=== PATIENT | female | born 1955 | race Caucasian/White ===

== ENCOUNTER 2022-01-17 11:46 | Outpatient (CLI) | payer MEDICARE, BC, SELFPAY ==
[2022-01-17 14:20] LABS: Vitamin D 25 Hydroxy* 29 ng/mL (30-80)
[2022-01-17 14:22] LABS: Chloride* 102 mmol/L (96-114); Potassium* 4.6 mmol/L (3.6-5.1); Sodium* 141 mmol/L (135-149)
[2022-01-17 14:25] LABS: Blood Urea Nitrogen* 11 mg/dL (7-30); Carbon Dioxide* 30 mmol/L (20-32); Cholesterol* 223 mg/dL (90-199); Creatinine* 0.6 mg/dL (0.5-1.5); Estimated Glomerular Filt Rate 98 ml/min; Glucose* 82 mg/dL (60-115); Triglycerides* 129 mg/dL (40-149)
[2022-01-17 14:26] LABS: Calcium* 9.3 mg/dL (8.4-10.6); HDL Cholesterol* 69 mg/dL (>=50); LDL Cholesterol Calculated 128 mg/dL (<100)
[2022-01-17 14:34] LABS: Thyroid Stimulating Hormone* 0.414 uIU/mL (0.270-4.20)
== END 2022-01-17 11:47 | disposition home or self-care (01) ==
PROVIDERS: PCP Family Medicine; Visit Provider Family Medicine
DX: I10 Essential (primary) hypertension (principal); R53.83 Other fatigue; E55.9 Vitamin D deficiency, unspecified; Z79.899 Other long term (current) drug therapy
CPT/HCPCS: 80048; 80061; 82306; 84443

== ENCOUNTER 2022-03-17 21:01 | Emergency (ER) | payer MEDICARE, BC, SELFPAY ==
[2022-03-17 21:12] VITALS: BP 124/78; PULSE 105; RESP 18; TEMP 36.7; O2SAT 99; BMI 22.0
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
--- NOTE | 2022-03-17 21:35 | CRLHL7_ITS ---
For Patients: As a result of the Century Cures Act, medical imaging exams and procedure reports are released immediately into your electronic medical record. You may view this report before your referring provider. If you have questions, please contact your health care provider. INDICATION: Delirium. TECHNIQUE: CT head without contrast. COMPARISON: None. FINDINGS: CSF spaces: Within normal limits for age. Brain parenchyma and extra-axial spaces: Mild bilateral periventricular white matter hypoattenuation, consistent with chronic small vessel ischemic disease. The boyce-white differentiation is normal. No sign of mass, hemorrhage, or midline shift. No extra-axial fluid collection. Skull base and calvarium: The visualized paranasal sinuses and mastoid air cells demonstrate no acute or significant findings. The visualized orbits are grossly unremarkable. No skull fractures. IMPRESSION: No evidence of an acute intracranial abnormality. Changes of mild chronic small vessel ischemic disease. Please note that all CT scans at this facility use dose modulation, iterative reconstruction, and/or weight-based dosing when appropriate to reduce radiation dose to as low as reasonably achievable. Dictated by Dipesh Zazueta MD @ 03/18/2022 1:33:12 AM (Electronically Signed)
[2022-03-17 22:16] LABS: Basophils Absolute Auto 0.05 K/uL (0.00-0.30); Basophils Percent Auto 0.5 % (0.0-3.0); Eosinophils Absolute Auto 0.03 K/uL (0.00-0.50); Eosinophils Percent Auto 0.3 % (0.0-7.0); Hematocrit 40.1 % (33.0-51.0); Hemoglobin* 14.1 gm/dL (12.0-16.0); Immature Granulocytes Abs Auto 0.02 K/uL (0.00-0.30); Immature Granulocytes Pct Auto 0.2 %; Lymphocytes Percent Auto 18.3 % (20-44); Mean Corpuscular HGB Conc 35 gm/dL (32-36); Mean Corpuscular Hemoglobin 32 pg (26-34); Mean Corpuscular Volume 90 fL (80-100); Monocytes Percent Auto 10.9 % (0.0-11.0); Neutrophils Absolute Auto 7.08 K/uL (1.7-7.0); Neutrophils Percent Auto 69.8 % (42.0-72.0); Platelet Count* 418 K/uL (140-440); RDW Coefficient of Variation % 11.8 % (11.5-15.5); Red Blood Count 4.45 m/uL (4.00-5.20); White Blood Count* 10.13 K/uL (4.50-11.00)
[2022-03-17 22:18] LABS: Slide Review Reflex No
[2022-03-17] MEDS: OLANZapine 5 MG/ML inj IM ×2 (22:25→22:41)
[2022-03-17 22:40] VITALS: O2SAT 86
[2022-03-17 22:42] LABS: Chloride* 100 mmol/L (96-114)
[2022-03-17 22:43] LABS: Albumin* 4.8 g/dL (3.3-5.0); Sodium* 134 mmol/L (135-149)
[2022-03-17 22:44] LABS: Potassium* 3.8 mmol/L (3.6-5.1)
[2022-03-17 22:46] LABS: Alanine Aminotransferase* 51 U/L (4-35); Alkaline Phosphatase* 138 U/L (40-150); Aspartate Amino Transferase* 131 U/L (12-35); Bilirubin Total* 0.7 mg/dL (0.1-1.5); Blood Urea Nitrogen* 7 mg/dL (7-30); Carbon Dioxide* 22 mmol/L (20-32); Creatinine* 0.6 mg/dL (0.5-1.5); Est. Creatinine Clearance* 44.54; Estimated Glomerular Filt Rate 98 ml/min; Glucose* 125 mg/dL (60-115); Total Protein* 7.4 g/dL (6.0-8.3)
[2022-03-17 22:47] LABS: Calcium* 10.2 mg/dL (8.4-10.6)
[2022-03-17 22:51] LABS: Acetaminophen* < 10.0 ug/mL (10.0-30.0); Ethanol* < 0.01 % (0.01-0.03); Salicylate* < 1.0 mg/dL (1.0-10)
[2022-03-17 22:55] VITALS: PULSE 99; RESP 20; O2SAT 96
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
--- NOTE | 2022-03-17 23:30 | ED.NURSE ---
Attempted to move patient to the bed from the restraint chair. Patient refusing stating, no, no, no. Will reattempt shortly.
[2022-03-18] VITALS (9 sets, daily range): BP systolic 110–127; BP diastolic 69–79; PULSE 89–99; RESP 14–18; TEMP 36.3–36.5; O2SAT 95–99
--- NOTE | 2022-03-18 | ED.NURSE ---
Patient refusing blood pressure check.
[2022-03-18] MEDS: diphenhydrAMINE 50 MG/ML inj IM (00:13)
[2022-03-18] MEDS: LORazepam 2 MG/ML inj IM (00:14)
--- NOTE | 2022-03-18 01:07 | ED.NURSE ---
Patient calm and cooperative. Agreeable to plan of care. Restraints removed.
--- NOTE | 2022-03-18 01:18 | ED.NURSE ---
Patient remains calm and cooperative. To CT and back to room. Patient provided with warm blankets.
--- NOTE | 2022-03-18 02:03 | ED.NURSE ---
Patient sleeping. Respirations easy, even and unlabored. Continuing frequent visual checks and camera monitoring.
--- NOTE | 2022-03-18 02:26 | ED.NURSE ---
Patient's daughter updated with plan of care. She will be going home to rest for the night. Patient continues to sleep. Continuos pulse ox in place.
[2022-03-18 07:57] LABS: Appearance Urine Clear (Clear); Bilirubin Urine Negative (Negative); Blood Urine Negative (Negative); Color Urine Yellow (Yellow); Glucose Urine Negative (Negative); Ketones Urine 3+ (Negative); Leukocyte Esterase Urine Trace (Negative); Nitrite Urine Negative (Negative); Protein Urine Negative (Negative); Urobilinogen Urine 0.2 (0.2-1.0)
[2022-03-18 08:02] LABS: Amphetamine Screen Urine Negative (Negative); Barbiturate Screen Urine Negative (Negative); Cannabinoid Screen Urine Negative (Negative); Cocaine Screen Urine Negative (Negative); Methadone Screen Urine Negative (Negative); Methamphetamines Screen Urine Negative (Negative); Opiate Screen Urine Negative (Negative); Oxycodone Screen Urine Negative (Negative); Phencyclidine Screen Urine Negative (Negative)
[2022-03-18 08:04] LABS: Benzodiazepines Screen Urine POSITIVE (Negative)
[2022-03-18 08:05] LABS: Tricyclic Antidepressant Urine POSITIVE (Negative)
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
[2022-03-18 08:17] LABS: Bacteria Urine Few; RBC Urine 0-2 (0-2); Squamous Epithelial Cell Urine Few (None-Few)
[2022-03-18 11:09] LABS: PCR FLU A Negative PCR FLU A (Negative); PCR FLU B Negative PCR FLU B (Negative); PCR RSV Negative PCR RSV (Negative)
[2022-03-18 11:33] LABS: SARS PCR* Negative SARS-CoV-2 (Negative)
[2022-03-18] MEDS: LORazepam 2 MG/ML inj 1 MG IM (13:40)
[2022-03-18] MEDS: OLANZapine 5 MG/ML inj IM (13:40)
--- NOTE | 2022-03-18 14:27 | ED.NURSE ---
leti mora not accepting her. was getting more agitated an wanted things her way. did let her have her purse with daughter present.
--- NOTE | 2022-03-18 14:32 | ED.NURSE ---
did take chicken broth with onions. has been up to br to void.
[2022-03-19] MEDS: IBUPROFEN 200 MG TABLET 600 MG PO (02:40)
[2022-03-19] MEDS: ALPRAZolam 0.25 MG TABLET 0.5 MG PO ×2 (04:00→14:25)
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
[2022-03-19 08:20] VITALS: BP 122/79; PULSE 86; RESP 20; TEMP 36.1; O2SAT 97
[2022-03-19] MEDS: CALCIUM CARBONATE 500 MG CHEW PO ×2 (10:50→22:33)
--- NOTE | 2022-03-19 10:50 | ED.NURSE ---
is tearful now and son Matt is stating that, I think I have my Mom back. Sadia is explaining that she did not take her meds for a week and had not been sleeping. is feeling that she is more on tract now. has been sleeping more the last few days she has been here. co having gas and calcium carbonate was given. has good appetite.
--- NOTE | 2022-03-19 14:20 | ED.NURSE ---
was asking for her xanax. 0.5 mg was given. does feel that she had the episode of her bizarre behavior due to not taking her meds, not sleeping and having severe stress. daughter is asking us to possibly doing the evaluation with dec tomorrow as she seems to be clearing. she is appropriate and watching the football game. eating and drinking well.
[2022-03-19] MEDS: QUETIAPINE 25 MG TABLET PO (16:55)
--- NOTE | 2022-03-19 18:34 | ED.NURSE ---
was offered a shower. has declined at present. I will wait for tomorrow to do that. did have food that was brought from the outside-[employer]. is cooperative and believes that she is better now and took the Seroquel to help stabilize her moods . will have Dec reassess - ~1999.
[2022-03-19] MEDS: NORTRIPTYLINE HCL 25 MG CAPSULE 100 MG PO (22:35)
--- NOTE | 2022-03-19 23:38 | ED.NURSE ---
Patient participating with DEC.
--- NOTE | 2022-03-20 04:35 | PC.NURSE ---
pt up to bathroom, asked for coffee, VS obtained at this time, pt appropriate and pleasant
[2022-03-20 04:36] VITALS: BP 116/72; PULSE 91; RESP 18; TEMP 36.4; O2SAT 95
[2022-03-20] MEDS: IBUPROFEN 200 MG TABLET 600 MG PO (05:10)
[2022-03-20] MEDS: ALPRAZolam 0.25 MG TABLET 0.5 MG PO (05:10)
--- NOTE | 2022-03-20 07:30 | ED.NURSE ---
left a message with social service to come and see patient about discharge to home.
--- NOTE | 2022-03-20 08:37 | ED.NURSE ---
patient is awake and given a menu to order some food for breakfast. patient is calm and cooperative asking questions.
[2022-03-20 09:40] VITALS: BP 141/87; PULSE 86; RESP 20; TEMP 36; O2SAT 98
--- NOTE | 2022-03-20 11:30 | PC.SOCIAL ---
Discharge planning: Met with pt regarding d/c plan. Pt plans to return home and is interested in setting up mental health counseling for herself. Pt states she feels safe being discharged home. Provided pt with list of out-pt mental health therapists form the [facility] resource list and answered her questions. Pt is aware there is typically a wait list for counselling to start and feels comfortable with this. She states she will look over the list and call an agency or ask her daughter to assist her with this. Pt states her family will pick her up but she does not know who that will be. Pt gave mental health social worker permission to call her daughter, Ya, who has left a message requesting a call back from mental health social worker. Called dtr Ya Bonner, and answered her questions. Dtr is aware and agrees with recommendation for out-pt mental health therapy and requested the information be emailed to her so she can assist pt in setting this up. Dtr states she is concerned about pt taking her medications correctly. Shared with dtr information on lpn home health care agencies and that some families have used times medication dispensing machines. Dtr is interested in this and states she will look into options. Dtr states she and her brother are deciding on discharge plan and are likely going to pick pt up to stay with one of them for awhile and have her return to her home at a later time. Dtr aware of how to contact mental health social worker if additional resources are needed.
== END 2022-03-20 11:40 | disposition home or self-care (01) ==
PROVIDERS: Family Medicine; Internal Medicine; Emergency Provider Family Medicine; PCP Family Medicine
DX: R41.82 Altered mental status, unspecified (principal); F22 Delusional disorders
CPT/HCPCS: 36415; 70450; 80053; 80143; 80179; 80306; 81003; 81015; 82077; 85025; 87086; 87502; 87634; 87635; 94761; 96372; 99284; 99285; A9270; J1200; J2060; S0166

== ENCOUNTER 2022-05-09 11:39 | Outpatient (CLI) | payer MEDICARE, BC, SELFPAY | END 2022-05-09 11:40 | disposition home or self-care (01) | PROVIDERS: PCP Family Medicine; Visit Provider Family Medicine | DX: R39.15 Urgency of urination (principal); R10.32 Left lower quadrant pain | CPT/HCPCS: 87086; 87186 ==

== ENCOUNTER 2022-05-09 14:55 | Outpatient (CLI) | payer MEDICARE, BC, SELFPAY ==
--- NOTE | 2022-05-09 15:00 | CRLHL7_ITS ---
For Patients: As a result of the Century Cures Act, medical imaging exams and procedure reports are released immediately into your electronic medical record. You may view this report before your referring provider. If you have questions, please contact your health care provider. INDICATION: Left lower quadrant abdominal pain. Prior hysterectomy and appendectomy. TECHNIQUE: Contrast-enhanced CT of the abdomen and pelvis. 59 cc nonionic Isovue-370 administered. COMPARISON: None. FINDINGS: Clear included lung bases. Normal-appearing liver, spleen, pancreas, partly contracted gallbladder, and adrenal glands. 2 mm nonobstructing stone mid right kidney image 43 series 2. Two small left renal cortical cysts the larger measuring up to 2.1 cm image 43 series 2. Vascular calcification within a normal caliber mildly tortuous abdominal aorta and iliac arteries. Normal inferior vena cava. There is no evidence for small or large bowel obstruction. Surgically absent appendix. Few sigmoid diverticula. No diverticulitis. Surgically absent uterus. The urinary bladder is unremarkable. Within the left lower quadrant there is a lobulated soft tissue mass which could reflect the left ovary. This measures 2.0 x 3.2 cm, image 95 series 2. Please correlate with the pertinent surgical record regarding a hysterectomy. Given the patient`s left lower quadrant pain, ultrasound would be helpful for further evaluation. Both inguinal regions and soft tissues of the included thighs are within normal limits. Multilevel degenerative disc disease of the included thoracolumbar spine. No acute fractures of the included skeleton. IMPRESSION: 1. Multi lobulated soft tissue mass left lower quadrant possibly/probably the left ovary measuring 2.0 x 3.2 cm image 95 series 2. Consider a directed ultrasound given that this is somewhat more prominent than is typically seen in a postmenopausal female and the patient has left lower quadrant pain. 2. Sigmoid diverticulosis without diverticulitis. 3. Surgically absent uterus and appendix. 4. Tiny nonobstructing right renal stone. Please note that all CT scans at this facility use dose modulation, iterative reconstruction, and/or weight-based dosing when appropriate to reduce radiation dose to as low as reasonably achievable. Dictated by David Cronin MD @ 05/09/2022 6:55:32 PM (Electronically Signed)
[2022-05-09 15:34] LABS: Creatinine* 0.4 mg/dL (0.5-1.5); Estimated Glomerular Filt Rate 107 ml/min
== END 2022-05-09 14:56 | disposition home or self-care (01) ==
PROVIDERS: PCP Family Medicine; Visit Provider Family Medicine
DX: R10.32 Left lower quadrant pain (principal); R19.04 Left lower quadrant abdominal swelling, mass and lump; K57.30 Diverticulosis of large intestine without perforation or abscess without bleeding; N20.0 Calculus of kidney
CPT/HCPCS: 36415; 74177; 82565; 87086; 87186; Q9967

== ENCOUNTER 2022-05-17 12:00 | Outpatient (CLI) | payer MEDICARE, BC, SELFPAY ==
--- NOTE | 2022-05-17 12:15 | CRLHL7_ITS ---
For Patients: As a result of the Century Cures Act, medical imaging exams and procedure reports are released immediately into your electronic medical record. You may view this report before your referring provider. If you have questions, please contact your health care provider. CLINICAL HISTORY: Prominent left ovary on recent CT, evaluate for possible mass. Comparison: CT 05/09/2022 TECHNIQUE: 2D boyce scale ultrasound. In addition color Doppler and spectral Doppler analysis was performed of the pelvis using a transabdominal approach. FINDINGS: Postoperative changes of hysterectomy and right oophorectomy. The left ovary measures 5.0 x 2.3 x 3.2 cm. The ovaries demonstrate normal arterial and venous blood flow on color Doppler and spectral Doppler analysis. There are no suspicious fluid collections within the cul-de-sac. IMPRESSION: Normal sonographic appearance of the left ovary without ovarian mass. No torsion. Dictated by Armand Younger MD @ 05/17/2022 12:57:04 PM (Electronically Signed)
== END 2022-05-17 12:01 | disposition home or self-care (01) ==
LOC: US 12:01
PROVIDERS: PCP Family Medicine; Visit Provider Family Medicine
DX: R10.32 Left lower quadrant pain (principal); Z90.721 Acquired absence of ovaries, unilateral; Z90.710 Acquired absence of both cervix and uterus
CPT/HCPCS: 76856; 93976

== ENCOUNTER 2022-06-20 08:45 | Outpatient (CLI) | payer MEDICARE, BC, SELFPAY | END 2022-06-20 08:46 | disposition home or self-care (01) | PROVIDERS: PCP Family Medicine; Visit Provider Surgery | DX: R10.32 Left lower quadrant pain (principal); K57.30 Diverticulosis of large intestine without perforation or abscess without bleeding | CPT/HCPCS: 45378; 99153; J2250; J3010 ==

== ENCOUNTER 2023-01-29 12:14 | Outpatient (CLI) | payer MEDICARE, BC, SELFPAY ==
[2023-01-29 14:44] LABS: Basophils Absolute Auto 0.04 K/uL (0.00-0.30); Basophils Percent Auto 0.7 % (0.0-3.0); Eosinophils Absolute Auto 0.17 K/uL (0.00-0.50); Eosinophils Percent Auto 3.1 % (0.0-7.0); Hematocrit 41.2 % (33.0-51.0); Hemoglobin* 13.3 gm/dL (12.0-16.0); Immature Granulocytes Abs Auto 0.03 K/uL (0.00-0.30); Immature Granulocytes Pct Auto 0.6 %; Lymphocytes Percent Auto 44.2 % (20-44); Mean Corpuscular HGB Conc 32 gm/dL (32-36); Mean Corpuscular Hemoglobin 31 pg (26-34); Mean Corpuscular Volume 96 fL (80-100); Monocytes Percent Auto 10.7 % (0.0-11.0); Neutrophils Percent Auto 40.7 % (42.0-72.0); Platelet Count* 333 K/uL (140-440); White Blood Count* 5.41 K/uL (4.50-11.00)
[2023-01-29 14:50] LABS: Slide Review Reflex No
[2023-01-29 15:00] LABS: Vitamin D 25 Hydroxy* 36 ng/mL (30-80)
[2023-01-29 15:13] LABS: Albumin* 4.3 g/dL (3.3-5.0)
[2023-01-29 15:14] LABS: Chloride* 100 mmol/L (96-114); Sodium* 138 mmol/L (135-149)
[2023-01-29 15:16] LABS: Anion Gap 12 mEq/L (7-15); Aspartate Amino Transferase* 30 U/L (12-35); Bilirubin Total* 0.3 mg/dL (0.1-1.5); Carbon Dioxide* 26 mmol/L (20-32); Creatinine* 0.6 mg/dL (0.5-1.5); Estimated Glomerular Filt Rate 97 ml/min
[2023-01-29 15:17] LABS: Alanine Aminotransferase* 22 U/L (4-35); Alkaline Phosphatase* 94 U/L (40-150); Blood Urea Nitrogen* 11 mg/dL (7-30); Glucose* 113 mg/dL (60-115); Total Protein* 6.9 g/dL (6.0-8.3)
[2023-01-29 15:22] LABS: Potassium* 4.3 mmol/L (3.6-5.1)
== END 2023-01-29 12:15 | disposition home or self-care (01) ==
PROVIDERS: PCP Family Medicine; Visit Provider Family Medicine
DX: R53.83 Other fatigue (principal); Z13.29 Encounter for screening for other suspected endocrine disorder; I10 Essential (primary) hypertension; F33.9 Major depressive disorder, recurrent, unspecified; F41.1 Generalized anxiety disorder; G47.00 Insomnia, unspecified; R21 Rash and other nonspecific skin eruption; Z13.21 Encounter for screening for nutritional disorder
CPT/HCPCS: 80053; 82306; 84443; 85025

== ENCOUNTER 2023-10-02 15:21 | Outpatient (CLI) | payer MEDICARE, BC, SELFPAY ==
--- OUTSIDE RECORDS SUMMARY | 2023-10-02 15:27 | XMS_ITS | Referral Summary ---
Author Organization [facility] Address [address] [place] [address] Care Team Providers Care Ladle Operator Name Role Phone Elsewhere, Pcp Primary Care Provider Unavailabl e Source Comments Patient records contain information from all sites at [facility]. For routine questions regarding patient records, call [phone] during business hours, M-F 8:00 AM - 5:00 PM Central Time. Record requests for emergency care only can be directed to [phone] at any time.[facility] Allergies Active Allergy Reactions Criticality Noted Date Comments Codeine Other (see comments) 01/14/2008 Latex Rash 04/08/2022 Penicillins Rash 02/19/2006 Medications Medication Sig Dispensed Refills Start Date End Date Status naproxen (NAPROSYN) 500 mg tablet Take 1 tablet by mouth 2 (two) times a day with meals. 12/18/2017 Active vitamin E 400 unit capsule 400 Units at bedtime. 10/19/2015 Active biotin 1 mg tablet Take 2 mg by mouth at bedtime. Active lisinopril-hydroCHLOROth iazide (PRINZIDE,ZESTORETIC) 10-12.5 mg per tablet Take 1 tablet by mouth at bedtime. Active aspirin [address] tablet Take 81 mg by mouth daily. Active fenofibrate nanocrystallized (TRICOR) 145 mg tablet Take 1 tablet (145 mg total) by mouth daily. 90 tablet 04/20/2022 Active OLANZapine (ZyPREXA) 5 mg tablet Take 1 tablet (5 mg total) by mouth at bedtime. 30 tablet 04/19/2022 Active diazePAM (VALIUM) 2 mg tablet Take 1 tablet (2 mg total) by mouth 3 (three) times a day for 3 days, THEN 1 tablet (2 mg total) 2 (two) times a day for 3 days, THEN 1 tablet (2 mg total) daily for 3 days. 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 04/07/2022 Depression Major 04/07/2022 Resolved Problems Problem Noted Date Diagnosed Date Resolved Date Ketoacidosis 04/07/2022 04/12/2022 Social History Tobacco Use Types Packs/Day Years Used Date Smoking Tobacco: Former Cigarettes Smokeless Tobacco: Never Tobacco Cessation:Counseling Given: Not Answered Alcohol Use Standard Drinks/Week Comments Yes 14 (1 standard drink = 0.6 oz pu re alcohol) Nutrition Answer Date Recorded Nutrition: EVOO Fat Source Unknown 03/19 Nutrition: Servings of Fruits/Vegetables per Day Not on file 03/19/2021 Dental Answer Date Recorded Dental: Regular Dentist Unknown 03/19/19 Sex and Gender Information Value Date Recorded Sex Assigned at Not on file Gender Identity Not on file Sexual Orientation Not on file Last Filed Vital Signs Vital Sign Reading Time Taken Comments Blood Pressure 129/66 04/19/2022 2:55 PM DIGITAL ADVISOR Pulse 94 04/19/2022 2:55 PM DIGITAL ADVISOR Temperature 37.1 ??C (98.8 ??F) 04/19/2022 2:55 PM CS T Respiratory Rate 16 04/19/2022 2:55 PM DIGITAL ADVISOR Oxygen Saturation 98% 04/19/2022 2:55 PM DIGITAL ADVISOR Inhaled Oxygen Concentration - - Weight 55.7 kg (122 lb 12.7 oz) 04/08/2022 3:00 AM DIGITAL ADVISOR Height 160 cm (5' 3) 04/07/2022 9:30 PM DIGITAL ADVISOR Body Mass Index 21.75 04/07/2022 9:30 PM DIGITAL ADVISOR Plan of Treatment Not on file Procedures Procedure Name Priority Date/Time Associated Diagnosis Comments BASIC METABOLIC PANEL, S/P Timed 04/18/2022 8:27 AM DIGITAL ADVISOR from Last 3 Months or Most Recently Relevant to Health Maintenance Results * (ABNORMAL) Basic Metabolic Panel (04/18/2022 8:27 AM DIGITAL ADVISOR) Potassium, P 4.0 3.6 - 5.2 mmol/L 04/18/2022 8:56 AM DIGITAL ADVISOR MKTO Sodium, P 137 135 - 145 mmol/L 04/18/2022 8:56 AM DIGITAL ADVISOR MKTO Chloride, P 99 98 - 107 mmol/L 04/18/2022 8:56 AM DIGITAL ADVISOR MKTO Bicarbonate, P 27 22 - 29 mmol/L 04/18/2022 8:56 AM DIGITAL ADVISOR MKTO Anion Gap, P 11 7 - 15 04/18/2022 8:56 AM DIGITAL ADVISOR MKTO BUN (Blood Urea Nitrogen), P 15 6 - 21 mg/dL 04/18/2022 8:56 AM DIGITAL ADVISOR MKTO Creatinine 0.50(L) 0.59 - 1.04 mg/dL 04/18/2022 8:56 AM DIGITAL ADVISOR MKTO Estimated GFR (eGFR) >90 >=60 mL/min/BSA 04/18/2022 8:56 AM DIGITAL ADVISOR MKTO Comment: Estimated GFR calculated using the 2020 CKD_EPI creatinine equation. Calcium, Total, P 9.9 8.8 - 10.2 mg/dL 04/18/2022 8:56 AM DIGITAL ADVISOR MKTO Glucose, P 109 70 - 140 mg/dL 04/18/2022 8:56 AM DIGITAL ADVISOR MKTO Blood (Blood, Venous) 04/18/2022 8:27 AM DIGITAL ADVISOR 04/18/2022 8:30 AM DIGITAL ADVISOR Ruben Lopez M.D. LAB BLOOD ADD-ON [facility] [address] [place] [address], [facility]TO [facility] [address] [place] [address] from Last 3 Months or Most Recently Relevant to Health Maintenance Advance Directives For more information, please contact: [phone] * Full Code (Latest Code Status on File) Date Activated Date Inactivated Comments 04/07/2022 9:39 PM 04/19/2022 7:04 PM Question Answer Comments Full Code: Discussed Care Teams Ladle Operator Relationship Specialty Start Date End Date Elsewhere, Pcp PCP - General Internal Medicine 03/19/21
--- OUTSIDE RECORDS SUMMARY | 2023-10-02 15:27 | XMS_ITS | Clinical Summary ---
Author Organization [facility] Address [address] [place] [address] Care Team Providers Care Telegraph Office Manager Name Role Phone Elsewhere, Pcp Primary Care Provider Unavailabl e Source Comments Patient records contain information from all sites at [facility]. For routine questions regarding patient records, call [phone] during business hours, M-F 8:00 AM - 5:00 PM Central Time. Record requests for emergency care only can be directed to [phone] at any time.[facility] Allergies Active Allergy Reactions Criticality Noted Date [...] Comments Blood Pressure 129/66 04/19/2022 2:55 PM PROJECT COORDINATOR RN Pulse 94 04/19/2022 2:55 PM PROJECT COORDINATOR RN Temperature 37.1 ??C (98.8 ??F) 04/19/2022 2:55 PM CS T Respiratory Rate 16 04/19/2022 2:55 PM PROJECT COORDINATOR RN Oxygen Saturation 98% 04/19/2022 2:55 PM PROJECT COORDINATOR RN Inhaled Oxygen Concentration - - Weight 55.7 kg (122 lb 12.7 oz) 04/08/2022 3:00 AM PROJECT COORDINATOR RN Height 160 cm (5' 3) 04/07/2022 9:30 PM PROJECT COORDINATOR RN Body Mass Index 21.75 04/07/2022 9:30 PM PROJECT COORDINATOR RN Plan of Treatment Health Maintenance Due Date Last Done Comments Bone Density Scan (Osteoporo sis Screen) 1953 CT Colonography 1953 Cologuard 1953 Colonoscopy 1953 Colorectal Cancer Screening 1953 Depression Monitoring (PHQ-9) 1953 FIT 1953 Hepatitis C Screening 1955 Mammogram 1955 Office Visit for Blood Press ure Check / Re-check 1953 Hepatitis A Vaccines (1 of 2 - Risk 2-dose series) 1972 Zoster Vaccines (1 of 2) 2003 Hepatitis B Vaccines (1 of 3 - Risk 3-dose series) 2013 DTaP,Tdap,and Td Vaccines (3 - Td or Tdap) 09/10/2021 09/11/2011, 04/12/2011 COVID-19 Vaccine (4 - 2022-2 4 season) 2022 08/23/2021, 07/09/2020, 06/18/2020 Fall Risk Screen (Annual) 03/12/2023 Creatinine Level (Kidney Fun ction Test) 04/18/2023 04/18/2022, 04/16/2022, 04/14/2022, Additional history exists Potassium Level 04/18/2023 04/18/2022, 02/0 07/2022, 04/14/2022, Additional history exists Sodium Level 04/18/2023 04/18/2022, 02/0 07/2022, 04/14/2022, Additional history exists Influenza Vaccine (#1) 2023 Fasting Glucose for Diabetes Screening 04/18/2025 04/18/2022, 04/16/2022, 04/14/2022, Additional history exists Pneumococcal vaccine (65+ years) Completed 01/20/20 21, 12/23/2019 Procedures Procedure Name Priority Date/Time Associated Diagnosis Comments BASIC METABOLIC PANEL, S/P Timed 04/18/2022 8:27 AM PROJECT COORDINATOR RN from Last 3 Months or Most Recently Relevant to Health Maintenance Results * (ABNORMAL) Basic Metabolic Panel (04/18/2022 8:27 AM PROJECT COORDINATOR RN) Potassium, P 4.0 3.6 - 5.2 mmol/L 04/18/2022 8:56 AM PROJECT COORDINATOR RN MKTO Sodium, P 137 135 - 145 mmol/L 04/18/2022 8:56 AM PROJECT COORDINATOR RN MKTO Chloride, P 99 98 - 107 mmol/L 04/18/2022 8:56 AM PROJECT COORDINATOR RN MKTO Bicarbonate, P 27 22 - 29 mmol/L 04/18/2022 8:56 AM PROJECT COORDINATOR RN MKTO Anion Gap, P 11 7 - 15 04/18/2022 8:56 AM PROJECT COORDINATOR RN MKTO BUN (Blood Urea Nitrogen), P 15 6 - 21 mg/dL 04/18/2022 8:56 AM PROJECT COORDINATOR RN MKTO Creatinine 0.50(L) 0.59 - 1.04 mg/dL 04/18/2022 8:56 AM PROJECT COORDINATOR RN MKTO Estimated GFR (eGFR) >90 >=60 mL/min/BSA 04/18/2022 8:56 AM PROJECT COORDINATOR RN MKTO Comment: Estimated GFR calculated using the 2020 CKD_EPI creatinine equation. Calcium, Total, P 9.9 8.8 - 10.2 mg/dL 04/18/2022 8:56 AM PROJECT COORDINATOR RN MKTO Glucose, P 109 70 - 140 mg/dL 04/18/2022 8:56 AM PROJECT COORDINATOR RN MKTO Blood (Blood, Venous) 04/18/2022 8:27 AM PROJECT COORDINATOR RN 04/18/2022 8:30 AM PROJECT COORDINATOR RN Ruben Lopez M.D. LAB BLOOD ADD-ON [facility] [address] [place] [id number], [facility] MKTO [facility] in [address] [address] from Last 3 Months or Most Recently Relevant to Health Maintenance Advance Directives For more information, please contact: [phone] * Full Code (Latest Code Status on File) Date Activated Date Inactivated Comments 04/07/2022 9:39 PM 04/19/2022 7:04 PM Question Answer Comments Full Code: Discussed Care Teams Telegraph Office Manager Relationship Specialty Start Date End Date Elsewhere, Pcp PCP - General Internal Medicine 03/19/21
--- OUTSIDE RECORDS SUMMARY | 2023-10-02 15:27 | XMS_ITS | Clinical Summary ---
Author Organization [facility] Address [place], [place] [address] Care Team Providers Care Counter Stitcher Name Role Phone Armand Valdez MD Primary Care Provider + Allergies Active Allergy Reactions Criticality Noted Date Comments Codeine Insomnia 01/14/2008 Penicillins Rash 02/19/2006 Medications Medication Sig Dispensed Refills Start Date End Date Status MULTIVITAMIN TAB take 1 tablet by oral route once daily with food 0 09/24/2007 Active vitamin e 400 unit capsuleIndications: Unspecified keratitis 1 capsule twice daily 100 capsule 12 10/19/2015 Active medication order composerIndications :Unspecified keratitis Biotin once daily. Unsure of dosage 0 10/19/2015 Active medication order composerIndications :Unspecified keratitis B12 daily. Unsure of dosage 0 10/19/2015 Active nortriptyline 50 mg capsule TAKE TWO CAPSULES BY MOUTH AT BEDTIME 90 capsule 1 11/22/2016 Active hydrOXYzine HCl (ATARAX) 25 mg tabletIndications:P ruritus Take 1 tablet by mouth every 6 hours if needed. 30 tablet 12 11/20/2016 Active aspirin enteric coated (ECOTRIN) 325 mg tablet Take 1 tablet by mouth once daily with a meal. 90 tablet 3 07/03/2017 Active ALPRAZolam (XANAX) 0.25 mg tabletIndications:A nxiety state TAKE ONE TABLET BY MOUTH THREE TIMES A DAY NEEDED FOR ANXIETY 90 tablet 5 12/03/2017 Active naproxen (NAPROSYN) 500 mg tabletIndications:U nspecified keratitis TAKE ONE TABLET BY MOUTH TWICE A DAY WITH MEALS 60 tablet 12 12/18/2017 Active nortriptyline 50 mg capsuleIndications: Unspecified keratitis TAKE TWO CAPSULES BY MOUTH AT BEDTIME 60 capsule 12 12/18/2017 Active Active Problems Problem Noted Date Diagnosed Date Anxiety state, unspecified 02/19/2006 FLASH KERATITIS 12/08/1999 Immunizations Name Administration Dates Next Due Tdap 04/12/2011 Family History Medical History Relation Name Comments Cancer-colon Father Cancer-prostate Father Cancer-colon Mother Other Other 3 bros, 2 sis E Yemi and Depression Relation Name Status Comments Father Mother Other Social History Tobacco Use Types Packs/Day Years Used Date Smoking Tobacco: Every Day Cigarettes Smokeless Tobacco: Never Tobacco Cessation:Ready to Q uit: No; Counseling Given: Yes Comments:less due to cough Alcohol Use Standard Drinks/Week Comments Yes 0 (1 standard drink = 0.6 oz pur e alcohol) Social Sex and Gender Information Value Date Recorded Sex Assigned at Not on file Gender Identity Not on file Sexual Orientation Not on file Obstetrics History Last Filed Vital Signs Vital Sign Reading Time Taken Comments Blood Pressure 132/62 07/03/2017 6:17 PM CDT Pulse 98 07/03/2017 6:17 PM CDT Temperature 38.8 ??C (101.8 ??F) 07/03/2017 6:17 PM C DT Respiratory Rate 20 07/03/2017 6:17 PM CDT Oxygen Saturation 95% 07/03/2017 6:17 PM CDT Inhaled Oxygen Concentration - - Weight 63.1 kg (139 lb 1.6 oz) 07/03/2017 6:17 P M CDT Height 158.8 cm (5' 2.5) 11/20/2016 3:49 PM CDT Body Mass Index 25.04 11/20/2016 3:49 PM CDT Plan of Treatment Health Maintenance Due Date Last Done Comments Depression screening for age 12+ 1965 Hepatitis C screening for age 18-79 1971 Zoster (shingles) series for age 50+ (1 of 2) 2003 Mammogram for age 45-75 10/22/2014 10/22/2013, 03/21 BMI (ht and wt on same day) for age 18+ 11/20/2017 11/20/2016, 10/19/2015 Colonoscopy through age 75 01/07/2018 01/08/2008, DEXA/DXA scan for age 65+ 2018 Pneumococcal series for age 65+ (1 of 1 - PCV) 2018 Lipids for age 45-75 10/18/2020 10/19/2015, 10/23/19 14 Tetanus booster 04/12/2021 04/12/2011 (Comp leted outside of [facility]), 04/12/2011 COVID-19 vaccine series (2022- season) 2022 Influenza for age 65+ 11/11/2023 Tdap Completed 04/12/2011 Procedures Procedure Name Priority Date/Time Associated Diagnosis Comments LIPID PANEL W REFLEX MEASURED LDL Routine 10/19/2015 4:31 PM CDT Routine general medical examination at a health care facility COLONOSCOPY SCREENING Routine 01/08/2008 Family History of Malignant Neoplasm of Gastrointestinal Tract from Last 3 Months or Most Recently Relevant to Health Maintenance Results * (ABNORMAL) LIPID PANEL W REFLEX MEASURED LDL (10/19/2015 4:31 PM CDT) CHOLESTEROL,TOTAL 209(H) 100 - 199 mg/dL 10/19/2015 7:05 PM CDT [facility] TRIGLYCERIDES 177(H) <150 mg/dL 10/19/2015 7:05 PM CDT [facility] HDL CHOLESTEROL 74 >40 mg/dL 10/19/2015 7:05 PM CDT [facility] NON-HDL CHOLESTEROL 135 <145 mg/dl 10/19/2015 7:05 PM CDT [facility] CHOL/HDL RATIO 2.82 <4.50 10/19/2015 7:05 PM CDT [facility] LDL CHOLESTEROL 100 <=130 mg/dL 10/19/2015 7:05 PM CDT [facility] PATIENT STATUS NOT GIVEN 10/19/2015 7:05 PM CDT [facility] Blood BLOOD SPECIMEN / Unknown Venipuncture / Unknown 10/19/2015 4:31 PM CDT 10/19/2015 4:32 PM CDT Armand Valdez MD CHEMISTRY [facility] [address] [place] [address] [facility] [address] [place], [place] [address] [phone] * COLONOSCOPY SCREENING (01/08/2008) Armand Valdez MD GI PROCEDURE ORD from Last 3 Months or Most Recently Relevant to Health Maintenance Care Teams Counter Stitcher Relationship Specialty Start Date End Date Armand Valdez MD [address] [place] [address] PCP - General 02/19/06
--- OUTSIDE RECORDS SUMMARY | 2023-10-02 15:27 | XMS_ITS ---
Author Organization [facility] Address [address] [place] [address] Care Team Providers Care Fence Repairman Name Role Phone Unavailable Unavailable Unavailable Surgery Details Not on file Complications Check Surgery Details section. Procedure Estimated Blood Loss Check Surgery Details section. Procedure Findings Check Surgery Details section. Procedure Specimens Taken Check Surgery Details section.
== END 2023-10-02 15:22 | disposition home or self-care (01) ==
PROVIDERS: PCP Family Medicine; Visit Provider Family Medicine
DX: I10 Essential (primary) hypertension (principal); R53.83 Other fatigue; F10.91 Alcohol use, unspecified, in remission
CPT/HCPCS: 80048; 80061; 80076; 85025

== ENCOUNTER 2024-12-10 11:07 | Outpatient (CLI) | payer MEDICARE, BC, SELFPAY | END 2024-12-10 11:08 | disposition home or self-care (01) | PROVIDERS: PCP Family Medicine; Visit Provider Family Medicine | DX: I10 Essential (primary) hypertension (principal); R53.83 Other fatigue; Z00.00 Encounter for general adult medical examination without abnormal findings | CPT/HCPCS: 80048; 80061; 82306; 85025 ==